=== PATIENT | male | born 1985 | race African-American/Black ===

== ENCOUNTER 2021-04-11 12:06 | Outpatient (CLI) | payer OTHER ==
--- NOTE | 2021-04-11 13:51 | MRI Report ---
PROCEDURE: Brain W/O INDICATIONS: Headaches TECHNIQUE: Noncontrast axial T1 spin echo, axial T2 fast spin echo, sagittal and axial FLAIR, coronal T2 fast sp in echo, axial gradient echo, axial diffusion and ADC through the brain. COMPARISON: None. FINDINGS: Image quality: Excellent. CSF Spaces: Basal cisterns are patent. No extra-axial fluid collections. Ventricles are normal in size and shape. Brain: No intracranial masses or hemorrhage. Sam/white matter interface is normal. Brainstem appe ars normal. Diffusion-weighted images demonstrate no acute ischemic insult. No chronic ischemic ins ults. Normal intravascular flow voids are present. Skull and face: Calvarium has normal marrow signal. Orbits appear normal. Sinuses: Sinuses and mastoids are clear. IMPRESSION: Unremarkable MRI of the brain. Reviewed by: Alexander Reina MD on 04/11/2021 1:49 PM PDT Approved by: Alexander Reina MD on 04/11/2021 1:49 PM PDT Station ID: [id number]
== END 2021-04-11 12:07 | disposition home or self-care (01) ==
LOC: DI 12:06
PROVIDERS: ATTEND Physician Assistant
DX: R51.9 Headache, unspecified (principal)

== ENCOUNTER 2022-12-15 08:04 | Emergency (ER) | payer OTHER ==
--- NOTE | 2022-12-15 08:21 | ED Physician Documentation ---
PD HPI HEENT - Stated complaint Stated Complaint: JAW PX/SWOLLEN - Chief complaint Chief Complaint: Heent - History obtained from History obtained from: Patient - History of Present Illness Timing - onset: How many days ago (2) Timing - duration: Days (2) Timing - details: Abrupt onset, Still present Location: Throat Worsens: Swalllowing Associated symptoms: No: Fever, Congestion, Unable to swallow (but has pain with swallowing and feeling of fullness posterior pharnyx.), Facial swelling Similar symptoms before: Has not had sx before Review of Systems Constitutional: reports: Chills, Myalgias. denies: Fever Nose: denies: Rhinorrhea / runny nose, Congestion Throat: reports: Sore throat, Swollen tonsils Respiratory: denies: Cough GI: denies: Nausea, Vomiting, Diarrhea Skin: denies: Rash PD PAST MEDICAL HISTORY - Past Medical History Cardiovascular: None (no history of BP meds) Respiratory: None Neuro: None Endocrine/Autoimmune: None - Present Medications Home Medications: Ambulatory Orders Medication Instructions Recorded Confirmed Cetirizine [ZyrTEC] 10 mg PO BID #15 tablet 12/15/22 cephALEXin [Keflex] 500 mg PO QID 5 Days #20 cap 12/15/22 dexAMETHasone [Decadron] 4 mg PO DAILY #5 tablet 12/15/22 - Allergies Allergies/Adverse Reactions: Allergies Allergy/AdvReac Type Severity Reaction Status Date / Time Sulfa (Sulfonamide Allergy Unknown Verified 12/15/22 08:18 Antibiotics) PD ED PE NORMAL - Vitals Vital signs reviewed: Yes - General General: Alert and oriented X 3, No acute distress, Well developed/nourished - HEENT HEENT: Other (tonsils are slightly enlarged and red. There is mostly redness and some swelling without bulging in left peritonsillar area. Some submandibular adenopathy and fullness but not firm nor fluctuant. Mildly hoarse voice. ) - Cardiac Cardiac: RRR, No murmur - Respiratory Respiratory: Clear bilaterally - Derm Derm: Normal color, Warm and dry, No rash Results - Vitals Vitals: Vital Signs - 24 hr 12/15/22 12/15/22 12/15/22 08:14 08:25 10:32 Temperature 36.9 C Heart Rate 87 77 65 Respiratory 20 20 18 Rate Blood Pressure 150/89 H 156/82 H 161/95 H O2 Saturation 97 97 99 Oxygen O2 Source Room air - Labs Labs: Laboratory Tests 12/15/22 09:06 Group A Strep Rapid Negative PD Medical Decision Making - ED course Complexity details: reviewed results, considered differential (has pain and swelling peritonsillar. No general URI symptoms. Suspicious for bacterial infection. Able to swallow okay. minimal voice distortion. No visual abscess appearance. Considered but did not see need for CT neck. No area for I&D evident. ), d/w patient Drug Therapy Requiring Monitoring for Toxicity: Given the developing peritonsillar infection, I felt it appropriate to initiate treatment with IV dosings of steroid and antibiotics. Departure - Departure Disposition: Home, Self Care Clinical Impression: Peritonsillar cellulitis Condition: Stable Record reviewed to determine appropriate education?: Yes Instructions: ED Peritonsillar Infec Abx No I andD Follow-Up: [facility] Glynnel[facility] Lemus [Provider Group] Prescriptions: dexAMETHasone [Decadron] 4 mg PO DAILY #5 tablet cephALEXin [Keflex] 500 mg PO QID 5 Days #20 cap Cetirizine [ZyrTEC] 10 mg PO BID #15 tablet Comments: Your rapid strep test is negative but the throat culture is still pending and will result in a day or 2. An infection and symptoms like yours are typically bacterial and relate to other types of strep. As such we will go with cephalexin 4 times daily for the next 5 days and Decadron steroid for the inflammation daily for 5 more days. Also use cetirizine antihistamine twice daily for phlegm and congestion. Stay well-hydrated. Use Tylenol if needed for pain or fevers. I would anticipate improvement through the day today with the initial IV doses of antibiotics and steroid and resolution of symptoms over 2 or 3 days. Recheck if worsening instead. I sent your prescriptions to [facility] in [place]. Off work today and stay well-hydrated. Discharge Date/Time: 12/15/22 10:34
[2022-12-15] MEDS ORDERED: KETOROLAC 15 MG/ML VIAL IVP STA (08:31)
[2022-12-15] MEDS ORDERED: DEXAMETHASONE 10 MG/ML VIAL IVP STA (08:31)
[2022-12-15] MEDS ORDERED: cefTRIAXone 1 GM VIAL IVP STA (08:31)
[2022-12-15 09:35] LABS: RAPID STREP SCREEN Negative (Negative)
[2022-12-15 10:33] VITALS: BP 161/95
== END 2022-12-15 10:34 | disposition home or self-care (01) ==
LOC: ED 08:04
DX: J36 Peritonsillar abscess (principal)
CPT/HCPCS: 36415; 87070; 87430; 96374; 96375; 99283